=== PATIENT | female | born 1960 | race Caucasian/White ===

== ENCOUNTER 2017-06-20 11:58 | Emergency (ER) | payer OTHER ==
[~2017-06-20] VITALS: Ht 157.5 cm; Wt 69.0 kg
[~2017-06-20 11:58] MED LIST: ASPI81TA50 PO; ATEN-51 PO; ATOR80TA75 PO; BENA40TA54 PO; HYDR25TA6 PO; LANT3I SC
[2017-06-20 12:01] VITALS: Ht 157.5 cm; Wt 69.0 kg
--- NOTE | 2017-06-20 13:26 | RADRPT ---
PROCEDURE: XR Chest. CLINICAL INDICATION: chest pain, cough TECHNIQUE: Single frontal view of the chest was obtained COMPARISON: None FINDINGS: The heart and mediastinum are within normal limits. There are mild left lower lobe linear atelectatic changes. There is no pleural effusion or pneumothorax. RPTAT: AA IMPRESSION: Mild left lower lobe linear atelectatic changes. .Maco Andrade MD, MD Date Time Electronically viewed and signed by .Maco Andrade MD, MD on 06/20/2017 13:26 .S/
[2017-06-20] MEDS ORDERED: GUAI-637 PO (13:49)
[2017-06-20] MEDS ORDERED: ONDA-43 PO (13:50)
[2017-06-20] MEDS ORDERED: TYL500 PO (13:50)
--- NOTE | 2017-06-20 14:02 | ERD ---
ER Documentation Chief Complaint Chief Complaint cough x 3 days HPI This is a 57-year-old female presents to the ER with a cough for the last 3 days. Patient does have a headache with nausea and nonbilious nonbloody vomiting. She denies any diarrhea. Patient states that every time she coughs she feels chest pain. She denies any shortness of breath. He does not have history of asthma. Patient denies any sore throat or ear pain. Patient's younger son was sick with similar symptoms and her and her developed symptoms a couple days ago. ROS 12 point review of systems was done, all negative except per HPI. Medications Home Meds Active Scripts Acetaminophen* (Tylenol*) 500 Mg Tab, 500 MG PO Q4H Y for MILD PAIN LEVEL 1-3 for 3 Days, TAB Prov:IRENE AMAYA 06/20/17 Ondansetron Hcl* (Zofran*) 4 Mg Tab, 4 MG PO Q4H Y for NAUSEA AND OR VOMITING for 3 Days, TAB Prov:IRENE AMAYA 06/20/17 Guaifenesin* (Robitussin*) 100 Mg/5 Ml Syrup, 200 MG PO Q6H Y for COUGH for 3 Days, ML Prov:IRENE AMAYA 06/20/17 Reported Medications Insulin Glargine* (Lantus*) 100 Unit/Ml Soln, 32 UNIT SC BID 06/23/13 Aspirin (Aspir-Low) 81 Mg Tablet.dr, 81 MG PO DAILY 06/23/13 Atorvastatin* (Atorvastatin*) 80 Mg Tablet, 80 MG PO DAILY 06/23/13 Hydrochlorothiazide* (Hydrochlorothiazide*) 25 Mg Tab, 25 MG PO DAILY 06/23/13 Atenolol* (Atenolol*) 25 Mg Tablet, 25 MG PO DAILY 06/23/13 Benazepril Hcl* (Lotensin*) 40 Mg Tablet, 40 MG PO DAILY 06/23/13 Allergies Allergies: Coded Allergies: No Known Allergies (Verified Allergy, Mild, 06/23/13) PMhx/Soc History of Surgery: No Anesthesia Reaction: No Hx Neurological Disorder: No (DIABETES) Hx Respiratory Disorders: No Hx Cardiac Disorders: Yes (HTN, HIGH CHOLESTROL) Hx Psychiatric Problems: No Hx Miscellaneous Medical Probl: No Hx Alcohol Use: No Hx Substance Use: No Hx Tobacco Use: No Physical Exam Vitals Vital Signs Date Time Temp Pulse Resp B/P Pulse Ox O2 Delivery O2 Flow Rate FiO2 06/20/17 12:01 98.1 64 18 124/64 99 Physical Exam GENERAL: The patient is well-developed, well-nourished, in no acute distress. NECK: Cervical spine is non tender with no step off. Supple, no nuchal rigidity HEENT: Atraumatic. Pupils equal, round and reactive to light. Extraocular muscles are grossly intact. Conjunctivae pink, no discharge. Bilateral tympanic membranes are clear with no evidence of erythema, effusion or dulling of the light reflex. Tonsilar erythema with no exudates or uvular deviation. Clear rhinorrhea. RESPIRATORY: Clear to auscultation bilaterally. There are no rales, wheezes or rhonchi. HEART: Regular rate and rhythm. No murmurs, clicks, rubs or gallops. EXTREMITIES: No clubbing or cyanosis. Full range of motion. Grossly neurovascularly intact. NEUROLOGIC: Alert and oriented. Cranial nerves II through XII are intact. SKIN: There is no rash. The skin is warm and dry. Results 24 hrs [place] [id number] Rad[facility] Main Line: [phone] DIAGNOSTIC IMAGING REPORT Patient: JANIE SHEEHAN : 1960 Age: 57 Sex: F MR #: [id number] DOS: 06/20/17 0000 Ordering MD: IRENE AMAYA PA-C Location: [facility] Room/Bed: PROCEDURE: XR Chest. CLINICAL INDICATION: chest pain, cough TECHNIQUE: Single frontal view of the chest was obtained COMPARISON: None FINDINGS: The heart and mediastinum are within normal limits. There are mild left lower lobe linear atelectatic changes. There is no pleural effusion or pneumothorax. RPTAT: AA IMPRESSION: Mild left lower lobe linear atelectatic changes. .Maco Andrade MD, Date Time Electronically viewed and signed by .Maco Andrade MD, on 06/20/2017 13: 26 .S/ CC: IRENE AMAYA Procedures/[facility] EKG [address] elevation or t wave inversion Differential diagnosis includes but is not limited to; Viral URI, allergic rhinitis, bronchitis, pertussis,pneumonia. This is likely viral in etiology. Clinical suspicion for pneumonia is low as patient appears well, is not hypoxic or in any respiratory distress. Additionally, patients physical examination is benign. Plan was discussed with patient they understand and agree. Patient needs to follow up with PCP in 1-2 days or return to ER sooner if symptoms worsen. Departure Diagnosis: Primary Impression: Upper respiratory infection Condition: Stable Patient Instructions: Uri, Viral, No Abx (Adult) Additional Instructions: Llame al doctor MAANA y esha pete REGINO PARA DENTRO DE 1-2 LOPEZ.Dgale a la secretaria que nosotros le instruimos hacer esta regino.Avise o llame si vazquez condicin se empeora antes de la regino. Regresa aqui si peor o no mejor. IRENE AMAYA Jun 20, 2017 14:02
== END 2017-06-20 14:13 | disposition home or self-care (01) ==
LOC: FTE 11:58
DX: J06.9 Acute upper respiratory infection, unspecified (principal); I10 Essential (primary) hypertension; E11.9 Type 2 diabetes mellitus without complications; R11.2 Nausea with vomiting, unspecified; Z79.4 Long term (current) use of insulin; Z79.82 Long term (current) use of aspirin
CPT/HCPCS: 71010; 93005; Z7502

== ENCOUNTER 2018-12-04 12:42 | Emergency (ER) | payer OTHER ==
[~2018-12-04] VITALS: Ht 147.3 cm; Wt 73.0 kg
[~2018-12-04 12:42] MED LIST changes: +ATOR-2 PO; -ATOR80TA75 PO; +GUAI-637 PO; +ONDA4TAB13 PO; +TYL500 PO
[2018-12-04 12:58] VITALS: Ht 147.3 cm; Wt 73.0 kg
[2018-12-04] MEDS ORDERED: KETOROLAC 30 MG INJ IM STA (13:11)
[2018-12-04] MEDS ORDERED: IBUP-1542 PO (14:27)
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
[2018-12-04 14:43] VITALS: BP 148/69; PULSE 86; RESP 20
== END 2018-12-04 14:44 | disposition home or self-care (01) ==
LOC: FTE 12:42
DX: M79.602 Pain in left arm (principal); I10 Essential (primary) hypertension; E11.9 Type 2 diabetes mellitus without complications; Z79.4 Long term (current) use of insulin
CPT/HCPCS: 71045; 72040; 96372; J1885; Z7502